=== PATIENT | female | born 1990 | race Caucasian/White ===

== ENCOUNTER 2018-09-10 04:48 | Emergency (ER) | payer SELFPAY ==
--- NOTE | 2018-09-10 05:20 | ED.PDOC ---
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 Velez. Timing/Duration: other - see hpi Severity: moderate Improving Factors: nothing Worsening Factors: nothing Associated Symptoms: other - see hpi Allergies/Adverse Reactions: Allergies NO KNOWN ALLERGY Allergy (Verified 09/10/18 05:01) Home Medications: Ambulatory Orders Carvedilol 12.5 mg PO DAILY 09/10/18 Furosemide [Lasix] 40 mg PO BID 09/10/18 Lisinopril 5 mg PO BID 09/10/18 Spironolactone 25 mg PO DAILY 09/10/18 Review of Systems - Review of Systems Constitutional: States: no symptoms reported EENTM: States: no symptoms reported Respiratory: States: see HPI, short of breath Cardiology: States: see HPI Gastrointestinal/Abdominal: States: no symptoms reported Genitourinary: States: no symptoms reported Musculoskeletal: States: no symptoms reported Skin: States: no symptoms reported Neurological: States: no symptoms reported Endocrine: States: no symptoms reported All other Systems: Reviewed and Negative, No Change from Baseline Past Medical History (General) - Patient Medical History Hx Asthma: No Hx of COPD: No Hx Congestive Heart Failure: Yes - cardiomyopathy post Hx Other PMH: Yes - PTSD Surgical History: no surgical history - Social History Hx Tobacco Use: Yes Hx Alcohol Use: Yes - occ - Activities of Daily Living Patient Lives Alone: No - Female History Patient is a Female of Child Bearing Age (10 -59 yrs old): Yes Hx Last Menstrual Period: 08/17/18 Patient : No Family Medical History - Family History Mother Family History: No Known Physical Exam - Physical Exam General Appearance: Alert, Comfortable, No apparent distress Eye Exam: bilateral normal Ears, Nose, Throat: hearing grossly normal, normal ENT inspection, normal pharynx Neck: supple, normal inspection Respiratory: chest non-tender, lungs clear, normal breath sounds, no respiratory distress Cardiovascular/Chest: normal peripheral pulses, regular rate, rhythm, no murmur Peripheral Pulses: radial,right: 2+, radial,left: 2+ Gastrointestinal/Abdominal: non tender, soft, no organomegaly Back Exam: no CVA tenderness, no vertebral tenderness Extremity: no pedal edema, no calf tenderness Neurologic: alert, oriented x 3 Skin Exam: normal color, warm/dry Lymphatic: no adenopathy Progress - Progress Progress: 09/10/18 05:34 Vital Signs - 8 hr 09/10/18 09/10/18 05:01 05:15 Temperature 97 F L Pulse Rate [ 86 86 left] Respiratory 18 Rate Blood Pressure 123/77 [left] O2 Sat by Pulse 96 Oximetry - Results/Orders Results/Orders: 09/10/18 05:20 IV Care:Saline Lock per Protoc QSHIFT 09/10/18 05:30 EKG STAT Laboratory Results - last 24 hr 09/10/18 09/10/18 09/10/18 05:14 05:25 05:25 WBC 7.7 RBC 4.63 Hgb 14.4 Hct 43.2 MCV 93.2 MCH 31.1 H MCHC 33.3 RDW 13.5 Plt Count 193 MPV 9.1 Absolute Neuts (auto) 4.40 Absolute Lymphs (auto) 2.60 Absolute Monos (auto) 0.50 Absolute Eos (auto) 0.10 Absolute Basos (auto) 0.10 Neutrophils % 57.4 Lymphocytes % 33.8 Monocytes % 6.6 Eosinophils % 1.4 Basophils % 0.8 PT 9.6 INR 0.96 PTT (SP) 25.8 Sodium 138 Potassium 3.6 Chloride 104 Carbon Dioxide 23 Anion Gap 14.6 BUN 20 H Creatinine 0.64 BUN/Creatinine Ratio 31.3 H Random Glucose 101 Serum Osmolality 278.4 Calcium 9.4 Magnesium 1.8 Total Bilirubin 0.3 Direct Bilirubin < 0.1 Indirect Bilirubin 0.2 AST 20 ALT 30 Alkaline Phosphatase 96 Creatine Kinase 24 L CK-MB (CK-2) 0.5 CK-MB (CK-2) % 2.08 Troponin I 0.04 B-Natriuretic Peptide < 5.0 Serum Total Protein 7.7 Albumin 4.2 Urine Color Yellow Urine Appearance Clear Urine pH 6.0 Ur Specific [place] >= 1.030 Urine Protein Negative Urine Glucose (UA) Negative Urine Ketones Negative Urine Blood Negative Urine Nitrite Negative Urine Bilirubin Negative Urine Urobilinogen 0.2 Ur Leukocyte Esterase Trace H Urine RBC 1-3 Urine WBC 3-5 H Ur Epithelial Cells 5-10 Urine Bacteria 1+ Urine HCG, Qual Urine Opiates Screen Negative Urine Barbiturates Negative Ur Phencyclidine Scrn Negative U Amphetamin/Meth Scrn Negative U Benzodiazepines Scrn Negative U Cocaine Metab Screen Negative U Cannabinoids Screen Negative 09/10/18 05:25 WBC RBC Hgb Hct MCV MCH MCHC RDW Plt Count MPV Absolute Neuts (auto) Absolute Lymphs (auto) Absolute Monos (auto) Absolute Eos (auto) Absolute Basos (auto) Neutrophils % Lymphocytes % Monocytes % Eosinophils % Basophils % PT INR PTT (SP) Sodium Potassium Chloride Carbon Dioxide Anion Gap BUN Creatinine BUN/Creatinine Ratio Random Glucose Serum Osmolality Calcium Magnesium Total Bilirubin Direct Bilirubin Indirect Bilirubin AST ALT Alkaline Phosphatase Creatine Kinase CK-MB (CK-2) CK-MB (CK-2) % Troponin I B-Natriuretic Peptide Serum Total Protein Albumin Urine Color Urine Appearance Urine pH Ur Specific [place] Urine Protein Urine Glucose (UA) Urine Ketones Urine Blood Urine Nitrite Urine Bilirubin Urine Urobilinogen Ur Leukocyte Esterase Urine RBC Urine WBC Ur Epithelial Cells Urine Bacteria Urine HCG, Qual Negative Urine Opiates Screen Urine Barbiturates Ur Phencyclidine Scrn U Amphetamin/Meth Scrn U Benzodiazepines Scrn U Cocaine Metab Screen U Cannabinoids Screen - EKG/XRAY/CT EKG: Sinus, no ST T wave changes Comments: HR-87 XRAY: chest - no acute abnormalities Departure - Departure Clinical Impression: Left nephrolithiasis Chest pain Qualifiers: Chest pain type: unspecified Qualified Code(s): R07.9 - Chest pain, unspecified Back pain Qualifiers: Back pain location: low back pain Chronicity: unspecified Back pain laterality: unspecified Sciatica presence: without sciatica Qualified Code(s): M54.5 - Low back pain Disposition: Discharge to Home or Self Care Condition: Fair Departure Forms: ED Discharge - Pt. Copy, Patient Portal Self Enrollment Instructions: DI for Low Back Pain, Kidney Stones in Adults, Kidney Stones (DC) Home Medications: Ambulatory Orders Carvedilol 12.5 mg PO DAILY 09/10/18 Furosemide [Lasix] 40 mg PO BID 09/10/18 Lisinopril 5 mg PO BID 09/10/18 Spironolactone 25 mg PO DAILY 09/10/18 Addendum entered and electronically signed by Ramos Stein MD 09/10/18 09:20: Departure - Departure Clinical Impression: Left nephrolithiasis, Esophageal spasm Chest pain Qualifiers: Chest pain type: unspecified Qualified Code(s): R07.9 - Chest pain, unspecified Back pain Qualifiers: Back pain location: low back pain Chronicity: unspecified Back pain laterality: unspecified Sciatica presence: without sciatica Qualified Code(s): M54.5 - Low back pain Disposition: Discharge to Home or Self Care Condition: Good Departure Forms: ED Discharge - Pt. Copy, Patient Portal Self Enrollment Instructions: DI for Low Back Pain, Kidney Stones in Adults, Kidney Stones (DC) Diet: low fat, low cholesterol Activity: increase activity as tolerated Prescriptions: Omeprazole 20 mg PO BID #60 cap Home Medications: Ambulatory Orders Carvedilol 12.5 mg PO DAILY 09/10/18 Furosemide [Lasix] 40 mg PO BID 09/10/18 Lisinopril 5 mg PO BID 09/10/18 Omeprazole 20 mg PO BID #60 cap 09/10/18 Spironolactone 25 mg PO DAILY 09/10/18 Additional Instructions: Take medications as directed. See a primary care doctor within the next week to establish care and be evaluated for a possible upper endoscopy, due to your symptoms and family history of Chicas's Esophagus. Return to the E.R. for worsening symptoms. ED Addendum - ED Addendum Addendum: Laboratory Tests 09/10/18 09/10/18 09/10/18 05:14 05:25 05:25 WBC 7.7 RBC 4.63 Hgb 14.4 Hct 43.2 MCV 93.2 MCH 31.1 H MCHC 33.3 RDW 13.5 Plt Count 193 MPV 9.1 Absolute Neuts (auto) 4.40 Absolute Lymphs (auto) 2.60 Absolute Monos (auto) 0.50 Absolute Eos (auto) 0.10 Absolute Basos (auto) 0.10 Neutrophils % 57.4 Lymphocytes % 33.8 Monocytes % 6.6 Eosinophils % 1.4 Basophils % 0.8 PT 9.6 INR 0.96 PTT (SP) 25.8 D-Dimer, Quantitative Sodium 138 Potassium 3.6 Chloride 104 Carbon Dioxide 23 Anion Gap 14.6 BUN 20 H Creatinine 0.64 BUN/Creatinine Ratio 31.3 H Random Glucose 101 Serum Osmolality 278.4 Calcium 9.4 Magnesium 1.8 Total Bilirubin 0.3 Direct Bilirubin < 0.1 Indirect Bilirubin 0.2 AST 20 ALT 30 Alkaline Phosphatase 96 Creatine Kinase 24 L CK-MB (CK-2) 0.5 CK-MB (CK-2) % 2.08 Troponin I 0.04 B-Natriuretic Peptide < 5.0 Serum Total Protein 7.7 Albumin 4.2 Urine Color Yellow Urine Appearance Clear Urine pH 6.0 Ur Specific [place] >= 1.030 Urine Protein Negative Urine Glucose (UA) Negative Urine Ketones Negative Urine Blood Negative Urine Nitrite Negative Urine Bilirubin Negative Urine Urobilinogen 0.2 Ur Leukocyte Esterase Trace H Urine RBC 1-3 Urine WBC 3-5 H Ur Epithelial Cells 5-10 Urine Bacteria 1+ Urine HCG, Qual Urine Opiates Screen Negative Urine Barbiturates Negative Ur Phencyclidine Scrn Negative U Amphetamin/Meth Scrn Negative U Benzodiazepines Scrn Negative U Cocaine Metab Screen Negative U Cannabinoids Screen Negative 09/10/18 09/10/18 09/10/18 05:25 07:01 07:30 WBC RBC Hgb Hct MCV MCH MCHC RDW Plt Count MPV Absolute Neuts (auto) Absolute Lymphs (auto) Absolute Monos (auto) Absolute Eos (auto) Absolute Basos (auto) Neutrophils % Lymphocytes % Monocytes % Eosinophils % Basophils % PT INR PTT (SP) D-Dimer, Quantitative Sodium Cancelled Potassium Cancelled Chloride Cancelled Carbon Dioxide Cancelled Anion Gap Cancelled BUN Cancelled Creatinine Cancelled BUN/Creatinine Ratio Cancelled Random Glucose Cancelled Serum Osmolality Cancelled Calcium Cancelled Magnesium Cancelled Total Bilirubin Cancelled Direct Bilirubin Cancelled Indirect Bilirubin Cancelled AST Cancelled ALT Cancelled Alkaline Phosphatase Cancelled Creatine Kinase 19 L Cancelled CK-MB (CK-2) 0.4 CK-MB (CK-2) % Not Reportable Troponin I < 0.02 B-Natriuretic Peptide Cancelled Serum Total Protein Cancelled Albumin Cancelled Urine Color Urine Appearance Urine pH Ur Specific [place] Urine Protein Urine Glucose (UA) Urine Ketones Urine Blood Urine Nitrite Urine Bilirubin Urine Urobilinogen Ur Leukocyte Esterase Urine RBC Urine WBC Ur Epithelial Cells Urine Bacteria Urine HCG, Qual Negative Urine Opiates Screen Urine Barbiturates Ur Phencyclidine Scrn U Amphetamin/Meth Scrn U Benzodiazepines Scrn U Cocaine Metab Screen U Cannabinoids Screen 09/10/18 07:30 WBC RBC Hgb Hct MCV MCH MCHC RDW Plt Count MPV Absolute Neuts (auto) Absolute Lymphs (auto) Absolute Monos (auto) Absolute Eos (auto) Absolute Basos (auto) Neutrophils % Lymphocytes % Monocytes % Eosinophils % Basophils % PT INR PTT (SP) D-Dimer, Quantitative 0.38 Sodium Potassium Chloride Carbon Dioxide Anion Gap BUN Creatinine BUN/Creatinine Ratio Random Glucose Serum Osmolality Calcium Magnesium Total Bilirubin Direct Bilirubin Indirect Bilirubin AST ALT Alkaline Phosphatase Creatine Kinase CK-MB (CK-2) CK-MB (CK-2) % Troponin I B-Natriuretic Peptide Serum Total Protein Albumin Urine Color Urine Appearance Urine pH Ur Specific [place] Urine Protein Urine Glucose (UA) Urine Ketones Urine Blood Urine Nitrite Urine Bilirubin Urine Urobilinogen Ur Leukocyte Esterase Urine RBC Urine WBC Ur Epithelial Cells Urine Bacteria Urine HCG, Qual Urine Opiates Screen Urine Barbiturates Ur Phencyclidine Scrn U Amphetamin/Meth Scrn U Benzodiazepines Scrn U Cocaine Metab Screen U Cannabinoids Screen D-dimer negative, EKG read by me showed NSR with no ST changes nor T wave inversions. CXR negative. Troponin negative. Gabapentin and hydrocodone/APAP failed to relieve the pain. GI cocktail reduced the pain. The patient later disclosed that both her mother and father had been diagnosed with Chicas's esophagus She was given an RX for omeprazole and instructions to follow up with a primary care physician in the next week. Care instructions given. Karishma jernigan rnings given. Questions were elicited and answered. Patient voiced understanding and agreement with the plan.
--- NOTE | 2018-09-10 05:34 | RAD ---
EXAM: Single view chest. INDICATION: Shortness of breath. COMPARISON: Chest x-ray: None. FINDINGS: Cardiac silhouette: Unremarkable. Ilene: Unremarkable. Lobar consolidation: None. Pleural effusion: None. Pneumothorax: None. Other: None. Bones: Unremarkable. Other: None. IMPRESSION: 1. No acute cardiopulmonary process. Electronically signed by: Johnnie Valles MD 09/10/2018 5:31 AM CDT Workstation: [id number]
[2018-09-10] MEDS ORDERED: HYDROcodone 7.5MG/APAP 325MG 1 EA TAB ONE (05:55)
[2018-09-10] MEDS ORDERED: BACLOFEN 10 MG TAB PO ONE (05:57)
[2018-09-10] MEDS ORDERED: HYDROcodone 7.5MG/APAP 325MG 1 EA TAB PO ONE (05:57)
--- NOTE | 2018-09-10 06:20 | RAD ---
EXAM: Three view(s) of the lumbar spine. INDICATION: Pain, lumbar spine. COMPARISON: None. FINDINGS: Alignment: Intact. Fracture: No acute compression fracture or subluxation. There are at least three calcifications superimposed upon the left flank with the largest calcification along the lower pole measuring 1.2 cm in size. IMPRESSION: 1. No acute compression fracture. 2. Calcifications along the left flank measuring up to 1.2 cm in size, which may represent left renal stones. Electronically signed by: Johnnie Valles MD 09/10/2018 6:17 AM CDT Workstation: [id number]
[2018-09-10] MEDS ORDERED: ALUM & MAG HYDROX-SIMETHICONE 30 ML, LIDOCAINE VISCOUS 2% 15 ML PO ONE ×2 (08:48)
[2018-09-10] MEDS ORDERED: LIDOCAINE HCL 2% (MOUTH-THROAT) 15 ML UD ONE (08:49)
[2018-09-10] MEDS ORDERED: ALUM & MAG HYDROX-SIMETHICONE 30 ML UD ONE (08:49)
[2018-09-10 09:14] VITALS: BP 120/70
[2018-09-10 09:27] VITALS: TEMP 97.7; O2SAT 98
== END 2018-09-10 09:27 | disposition home or self-care (01) ==
LOC: ER 04:48
DX: R07.9 Chest pain, unspecified (principal); K22.4 Dyskinesia of esophagus; N20.0 Calculus of kidney; M54.5 Low back pain; R06.02 Shortness of breath; F43.10 Post-traumatic stress disorder, unspecified; Z87.891 Personal history of nicotine dependence; Z79.899 Other long term (current) drug therapy